=== PATIENT | male | born 1975 | race Two or more races ===

== ENCOUNTER 2019-05-07 19:08 | Emergency (ER) | payer SELFPAY ==
[~2019-05-07] VITALS: Ht 160 cm; Wt 77.0 kg
[2019-05-07 19:15] VITALS: BP 127/87
== END 2019-05-08 | disposition left against medical advice (07) ==
LOC: ER 19:08
DX: Z53.21 Procedure and treatment not carried out due to patient leaving prior to being seen by health care provider (principal); R07.9 Chest pain, unspecified
CPT/HCPCS: 93005